=== PATIENT | female | born 1995 | race Two or more races ===

== ENCOUNTER 2021-08-25 13:19 | Emergency (ER) | payer OTHER ==
[~2021-08-25] VITALS: Ht 162.6 cm; Wt 97.5 kg
== END 2021-08-25 19:25 | disposition home or self-care (01) ==
LOC: ER 13:19 → EDSEX 13:30 → ER 13:30
DX: O26.851 Spotting complicating pregnancy, first trimester (principal); Z3A.01 Less than 8 weeks gestation of pregnancy